=== PATIENT | female | born 1985 | race African-American/Black ===

== ENCOUNTER 2020-12-06 21:14 | Inpatient (IN) | payer MEDICAID ==
[~2020-12-06] VITALS: Ht 172.7 cm; Wt 102.6 kg
[2020-12-06] MEDS ORDERED: ACETAMINOPHEN 325 MG TAB PO ONE (23:15)
[2020-12-06] MEDS ORDERED: ONDANSETRON ODT 4 MG TAB PO ONE (23:15)
[2020-12-07 00:20] LABS: Basophils # (auto) 0 10 ^3/uL (0-0.2); Basophils % (auto) 0.4 % (0.0-2.0); Eosinophils # (auto) 0.1 10 ^3/uL (0-0.8); Eosinophils % (auto) 1.1 % (0.0-7.0); Hematocrit 41.2 % (36.0-46.0); Lymphocytes # (auto) 2.6 10 ^3/uL (0.4-5.4); Lymphocytes % (auto) 34.1 % (10.0-50.0); Mean Corpuscular Hemoglobin 31.5 pg (28.0-32.0); Mean Corpuscular Volume 92.5 fL (80.0-100.0); Monocytes # (auto) 0.6 10 ^3/uL (0-1.3); Monocytes % (auto) 7.6 % (0.0-12.0); Neutrophils # (auto) 4.3 10 ^3/uL (1.6-8.6); Neutrophils % (auto) 56.8 % (37.0-80.0); Nucleated Red Blood Cells % 0.1 %; Platelet Count (auto) 324 10^3/uL (140-450); Red Blood Cells 4.45 10^6/uL (4.0-5.20); Red Cell Distribution Width 13.2 % (11.8-14.3); White Blood Cell 7.5 10^3/uL (4.4-10.8)
[2020-12-07 00:32] LABS: Alanine Aminotransferase 21 U/L (13-56); Albumin 3.8 g/dL (3.4-5.0); Anion Gap 7 (5-15); Aspartate Aminotransferase 26 U/L (15-37); Blood Urea Nitrogen 7 mg/dL (7-18); Calcium 8.4 mg/dL (8.5-10.1); Carbon Dioxide 25 mmol/L (21-32); Chloride 108 mmol/L (98-107); GFR African American 94 mL/min; GFR Non-African American 78 mL/min; Glucose 86 mg/dL (74-106); Magnesium 2.4 mg/dL (1.6-2.6); Potassium 3.9 mmol/L (3.5-5.1); Sodium 140 mmol/L (136-145)
[2020-12-07 00:37] LABS: Alkaline Phosphatase 38 U/L (45-117); Bilirubin, Total 0.3 mg/dL (0.2-1.0); Total Protein 7.4 g/dL (6.4-8.2)
[2020-12-07 00:38] LABS: INR 0.98 (0.9-1.15); Partial Thromboplastin Time 28.3 sec (23.0-31.2)
[2020-12-07 01:06] LABS: Urine Bacteria NONE SEEN /hpf (None Seen); Urine Blood 3+ /uL (Negative); Urine Mucus MODERATE (None Seen); Urine WBC 368 /hpf (0 - 5)
[2020-12-07 01:07] LABS: Urine Specific Gravity 1.021 (1.001-1.035)
[2020-12-07 01:09] LABS: Alcohol, Urine < 3.0 mg/dL (0-10); Amphetamine Screen, Urine NEGATIVE (NEGATIVE); Barbiturate Scree,Urine NEGATIVE (NEGATIVE); Benzodiazephine Screen, Urine NEGATIVE (NEGATIVE); Cannabinoid Screen, Urine POSITIVE (NEGATIVE); Cocaine Screen, Urine NEGATIVE (NEGATIVE); Opiate Scree,Urine NEGATIVE (NEGATIVE); Phencyclidine Screen, Urine NEGATIVE (NEGATIVE)
[2020-12-07] MEDS ORDERED: IOHEXOL 300 MG/ML 100ML BOTTLE IJ ONE (01:18)
[2020-12-07] MEDS ORDERED: CIPROFLOXACIN 400MG/200ML 200 ML IV ONE (01:30)
[2020-12-07] MEDS ORDERED: ONDANSETRON HCL 4 MG/2 ML VIAL IV PRN (06:45)
[2020-12-07] MEDS ORDERED: NITROGLYCERIN 0.4 MG SL TAB SL PRN (06:45)
[2020-12-07] MEDS ORDERED: MORPHINE SULF INJ 2 MG/ML SYRINGE 1ML IV PRN (06:45)
[2020-12-07] MEDS ORDERED: DOCUSATE SOD 100 MG CAP PO PRN (06:45)
[2020-12-07] MEDS ORDERED: HYDROcodone-ACET 5/325MG TAB PO PRN (06:45)
[2020-12-07 08:04] LABS: Basophils # (auto) 0.1 10 ^3/uL (0-0.2); Basophils % (auto) 0.9 % (0.0-2.0); Eosinophils # (auto) 0.1 10 ^3/uL (0-0.8); Eosinophils % (auto) 0.9 % (0.0-7.0); Hematocrit 40.1 % (36.0-46.0); Hemoglobin 13.7 g/dL (12.2-16.2); Lymphocytes % (auto) 33.7 % (10.0-50.0); Mean Corpuscular Hemoglobin 31.3 pg (28.0-32.0); Monocytes # (auto) 0.4 10 ^3/uL (0-1.3); Monocytes % (auto) 7.7 % (0.0-12.0); Neutrophils # (auto) 3.3 10 ^3/uL (1.6-8.6); Neutrophils % (auto) 56.8 % (37.0-80.0); Nucleated Red Blood Cells % 0.1 %; Platelet Count (auto) 311 10^3/uL (140-450); Red Blood Cells 4.36 10^6/uL (4.0-5.20); Red Cell Distribution Width 13.2 % (11.8-14.3); White Blood Cell 5.8 10^3/uL (4.4-10.8)
[2020-12-07 08:19] LABS: Calcium 7.9 mg/dL (8.5-10.1)
[2020-12-07 08:25] LABS: Albumin 3.5 g/dL (3.4-5.0); BUN/Creatinine Ratio 6.6; Bilirubin, Total 0.4 mg/dL (0.2-1.0); Total Protein 6.9 g/dL (6.4-8.2)
[2020-12-07 08:51] LABS: Cholesterol 140 mg/dL (< 200)
[2020-12-07 08:54] LABS: HDL Cholesterol 64 mg/dL (40-59); LDL Cholesterol 74 mg/dL (< 100); Triglycerides 40 mg/dL (< 150)
[2020-12-07] MEDS: cefTRIAXone 1GM/50ML D5W 50 ML IV SCH (09:00)
[2020-12-07] MEDS: MULTIPLE VITAMIN TAB PO SCH (09:52)
[2020-12-07] MEDS: ZINC SULFATE 220mg CAP or TAB PO SCH (09:52)
[2020-12-07] MEDS: FAMOTIDINE 20 MG TAB PO SCH ×2 (09:52→21:35)
[2020-12-07] MEDS: ASCORBIC ACID 500 MG TAB PO SCH ×2 (09:52→21:35)
[2020-12-07] MEDS: ENOXAPARIN SOD 40 MG/0.4 ML SYRINGE SC SCH (09:53)
[2020-12-07] MEDS ORDERED: ASPirin 81 mg TAB PO SCH (10:00)
[2020-12-07] MEDS: SODIUM CHLOR 0.9% PF (SALINE LOCK) 10ML VIAL/SYR IV SCH ×2 (14:00→21:35)
[2020-12-07] MEDS ORDERED: LORazepam 2MG/ML-1ML VIAL IV PRN (16:00)
[2020-12-07] MEDS ORDERED: ATORVASTATIN 20 MG TAB PO SCH (22:00)
[2020-12-07 23:57] LABS: Cholesterol 134 mg/dL (< 200)
[2020-12-08] VITALS (7 sets, daily range): BP systolic 100–130; BP diastolic 62–84
[2020-12-08] LABS: HDL Cholesterol 58 mg/dL (40-59); LDL Cholesterol 71 mg/dL (< 100); Triglycerides 46 mg/dL (< 150)
[2020-12-08] MEDS: ACETAMINOPHEN 325 MG TAB PO PRN ×2 (00:05→10:12)
[2020-12-08] MEDS: SODIUM CHLOR 0.9% PF (SALINE LOCK) 10ML VIAL/SYR IV SCH ×3 (05:47→22:12)
[2020-12-08 07:20] LABS: Basophils # (auto) 0 10 ^3/uL (0-0.2); Basophils % (auto) 0.3 % (0.0-2.0); Eosinophils # (auto) 0.1 10 ^3/uL (0-0.8); Eosinophils % (auto) 1.6 % (0.0-7.0); Hematocrit 39.3 % (36.0-46.0); Hemoglobin 13.3 g/dL (12.2-16.2); Lymphocytes # (auto) 2.1 10 ^3/uL (0.4-5.4); Lymphocytes % (auto) 37.1 % (10.0-50.0); Mean Corpuscular Hemoglobin 31.1 pg (28.0-32.0); Mean Corpuscular Hgb Conc. 33.8 g/dL (32.0-36.0); Monocytes # (auto) 0.4 10 ^3/uL (0-1.3); Monocytes % (auto) 7.3 % (0.0-12.0); Neutrophils % (auto) 53.7 % (37.0-80.0); Nucleated Red Blood Cells % 0.1 %; Platelet Count (auto) 320 10^3/uL (140-450); Red Blood Cells 4.27 10^6/uL (4.0-5.20); Red Cell Distribution Width 13.5 % (11.8-14.3); White Blood Cell 5.6 10^3/uL (4.4-10.8)
[2020-12-08 07:29] LABS: Potassium 3.9 mmol/L (3.5-5.1)
[2020-12-08 07:43] LABS: Albumin 3.3 g/dL (3.4-5.0); BUN/Creatinine Ratio 7.4; Bilirubin, Total 0.4 mg/dL (0.2-1.0); Calcium 8.2 mg/dL (8.5-10.1); Total Protein 6.8 g/dL (6.4-8.2)
[2020-12-08] MEDS: ZINC SULFATE 220mg CAP or TAB PO SCH (10:00)
[2020-12-08] MEDS ORDERED: ASPirin 81 mg TAB PO SCH (10:00)
[2020-12-08] MEDS: ASCORBIC ACID 500 MG TAB PO SCH ×2 (10:00→22:12)
[2020-12-08] MEDS: cefTRIAXone 1GM/50ML D5W 50 ML IV SCH (10:11)
[2020-12-08] MEDS: ENOXAPARIN SOD 40 MG/0.4 ML SYRINGE SC SCH (10:12)
[2020-12-08] MEDS: MULTIPLE VITAMIN TAB PO SCH (10:12)
[2020-12-08] MEDS: FAMOTIDINE 20 MG TAB PO SCH ×2 (10:12→22:12)
[2020-12-08] MEDS ORDERED: LORazepam 2MG/ML-1ML VIAL IV PRN (21:15)
[2020-12-09 05:00] VITALS: BP 102/56
[2020-12-09] MEDS: SODIUM CHLOR 0.9% PF (SALINE LOCK) 10ML VIAL/SYR IV SCH ×3 (05:54→21:05)
[2020-12-09 09:00] VITALS: BP 110/64
[2020-12-09] MEDS: MULTIPLE VITAMIN TAB PO SCH (09:21)
[2020-12-09] MEDS: cefTRIAXone 1GM/50ML D5W 50 ML IV SCH (09:21)
[2020-12-09] MEDS: ZINC SULFATE 220mg CAP or TAB PO SCH (09:21)
[2020-12-09] MEDS: FAMOTIDINE 20 MG TAB PO SCH ×2 (09:21→21:05)
[2020-12-09] MEDS: ASCORBIC ACID 500 MG TAB PO SCH ×2 (09:22→21:05)
[2020-12-09] MEDS: ENOXAPARIN SOD 40 MG/0.4 ML SYRINGE SC SCH (09:22)
[2020-12-09] MEDS: ACETAMINOPHEN 325 MG TAB PO PRN (12:25)
[2020-12-09 12:49] VITALS: BP 128/75
[2020-12-09 16:51] VITALS: BP 128/73
[2020-12-09 22:25] VITALS: BP 135/89
[2020-12-10 05:01] VITALS: BP 110/68
[2020-12-10] MEDS: SODIUM CHLOR 0.9% PF (SALINE LOCK) 10ML VIAL/SYR IV SCH ×2 (05:46→14:00)
[2020-12-10 05:58] LABS: Basophils # (auto) 0 10 ^3/uL (0-0.2); Basophils % (auto) 0.4 % (0.0-2.0); Eosinophils # (auto) 0.1 10 ^3/uL (0-0.8); Eosinophils % (auto) 1.2 % (0.0-7.0); Hematocrit 37.2 % (36.0-46.0); Hemoglobin 12.8 g/dL (12.2-16.2); Lymphocytes # (auto) 2.1 10 ^3/uL (0.4-5.4); Mean Corpuscular Hemoglobin 31.6 pg (28.0-32.0); Mean Corpuscular Hgb Conc. 34.5 g/dL (32.0-36.0); Mean Corpuscular Volume 91.6 fL (80.0-100.0); Monocytes # (auto) 0.5 10 ^3/uL (0-1.3); Monocytes % (auto) 8.9 % (0.0-12.0); Neutrophils # (auto) 2.9 10 ^3/uL (1.6-8.6); Neutrophils % (auto) 51.5 % (37.0-80.0); Nucleated Red Blood Cells % 0.1 %; Platelet Count (auto) 296 10^3/uL (140-450); Red Blood Cells 4.07 10^6/uL (4.0-5.20); Red Cell Distribution Width 12.9 % (11.8-14.3); White Blood Cell 5.6 10^3/uL (4.4-10.8)
[2020-12-10 06:19] LABS: BUN/Creatinine Ratio 7.4; Calcium 8.2 mg/dL (8.5-10.1); Potassium 3.8 mmol/L (3.5-5.1)
[2020-12-10 09:00] VITALS: BP 127/70
[2020-12-10] MEDS: FAMOTIDINE 20 MG TAB PO SCH (09:51)
[2020-12-10] MEDS: ZINC SULFATE 220mg CAP or TAB PO SCH (09:51)
[2020-12-10] MEDS: MULTIPLE VITAMIN TAB PO SCH (09:51)
[2020-12-10] MEDS: ASCORBIC ACID 500 MG TAB PO SCH (09:52)
[2020-12-10] MEDS: ENOXAPARIN SOD 40 MG/0.4 ML SYRINGE SC SCH ×2 (09:52→10:00)
[2020-12-10 13:00] VITALS: BP 123/77
[2020-12-10 13:38] VITALS: BP 123/77
== END 2020-12-10 14:30 | disposition home or self-care (01) | DRG 47 ==
LOC: ER 21:17 → TELE 21:18 → TELE-WESTW 12-07 23:23
PROVIDERS: ADMIT Nurse Practitioner Family; ATTEND Internal Medicine
DX: G45.9 Transient cerebral ischemic attack, unspecified (principal); N92.0 Excessive and frequent menstruation with regular cycle; E66.9 Obesity, unspecified; I48.91 Unspecified atrial fibrillation; E44.1 Mild protein-calorie malnutrition; E87.1 Hypo-osmolality and hyponatremia; I87.8 Other specified disorders of veins; M53.86 Other specified dorsopathies, lumbar region; Z79.82 Long term (current) use of aspirin; Z79.899 Other long term (current) drug therapy; Z87.440 Personal history of urinary (tract) infections; Z68.34 Body mass index [BMI] 34.0-34.9, adult; Z20.822 Contact with and (suspected) exposure to COVID-19; N39.0 Urinary tract infection, site not specified; F12.90 Cannabis use, unspecified, uncomplicated; M41.86 Other forms of scoliosis, lumbar region
CPT/HCPCS: 36415; 70450; 70551; 71045; 72148; 74177; 76830; 76856; 80048; 80053; 80061; 80307; 81001; 81025; 83735; 83880; 84484; 84702; 85025; 85379; 85610; 85730; 87426; 93005; 93306; 93886; G0378; J0696; J2405; Q0162